=== PATIENT | female | born 1970 | race Caucasian/White ===

== ENCOUNTER 2018-11-17 18:37 | Inpatient (IN) | payer OTHER ==
[2018-11-17 20:43] LABS: ADD MAN DIFF? NO
[2018-11-17] MEDS ORDERED: ONDANSETRON 4 MG INJ (20:45)
[2018-11-17] MEDS ORDERED: morphine 4 MG/ML VIAL (20:45)
[2018-11-17] MEDS: ONDANSETRON 4 MG INJ IV (20:48)
[2018-11-17] MEDS: KETOROLAC 15 MG INJ IV (20:48)
[2018-11-17] MEDS: SOD CHLORIDE 0.9% 500 ML IV (20:48)
[2018-11-17] MEDS: morphine 4 MG/ML VIAL IV (20:49)
[2018-11-17 21:11] LABS: ADD UMIC YES; UR ASCORBIC ACID NEGATIVE (NEGATIVE); UR BACTERIA MODERATE /HPF (NONE SEEN); UR BILIRUBIN (Dip) NEGATIVE (NEGATIVE); UR BLOOD (Dip) 3+ mg/dL (NEGATIVE); UR CLARITY CLOUDY (CLEAR); UR COLOR YELLOW (YELLOW); UR GLUCOSE (Dip) NEGATIVE (NEGATIVE); UR KETONES (Dip) NEGATIVE (NEGATIVE); UR LEUKOCYTE ESTERASE (Dip) 3+ Leu/ul (NEGATIVE); UR MUCUS FEW /HPF (NONE SEEN); UR NITRITE (Dip) POSITIVE (NEGATIVE); UR RBC 69 /HPF (0-5); UR SPECIFIC GRAVITY (Dip) 1.017 (1.003-1.030); UR SQUAMOUS EPITHELIAL CELL FEW /HPF (FEW); UR TOTAL PROTEIN (Dip) 3+ mg/dl (NEGATIVE); UR TRANSITIONAL EPI CELL FEW /HPF (NONE SEEN); UR UROBILINOGEN (Dip) NEGATIVE (NEGATIVE); UR WBC > 182 /HPF (0-5)
[2018-11-17 21:12] LABS: WHITE BLOOD COUNT 17.7 10^3/ul (4.8-10.8)
[2018-11-17 21:12] LABS: BASOPHIL # 0.1 10^3/ul (0.0-0.1); BASOPHILS % 0.3 % (0.0-2.0); EOSINOPHILS % 0.1 % (0.0-7.0); HEMATOCRIT 41.9 % (37.0-47.0); HEMOGLOBIN 13.9 g/dl (12.0-16.0); LYMPHOCYTES # 1.5 10^3/ul (0.8-2.9); LYMPHOCYTES % 8.7 % (15.0-51.0); MEAN CORPUSCULAR HEMOGLOBIN 30.3 pg (29.0-33.0); MEAN CORPUSCULAR HGB CONC 33.2 g/dl (32.0-37.0); MEAN CORPUSCULAR VOLUME 91.5 fl (82.0-101.0); MEAN PLATELET VOLUME 10.6 fl (7.4-10.4); MONOCYTE # 1.1 10^3/ul (0.3-0.9); MONOCYTES % 6.4 % (0.0-11.0); NEUTROPHIL # 14.8 10^3/ul (1.6-7.5); NEUTROPHILS % 83.8 % (39.0-77.0); PLATELET COUNT 237 10^3/UL (140-415); RED BLOOD COUNT 4.58 10^6/ul (4.20-5.40); RED CELL DISTRIBUTION WIDTH 12.5 % (11.5-14.5)
[2018-11-17 21:31] LABS: ALANINE AMINOTRANSFERASE 75 IU/L (13-69); ALBUMIN 3.7 g/dl (3.3-4.9); ALBUMIN/GLOBULIN RATIO 1.27; ALKALINE PHOSPHATASE 87 IU/L (42-121); ANION GAP 10 (5-13); ASPARTATE AMINO TRANSFERASE 44 IU/L (15-46); BILIRUBIN,INDIRECT 0.7 mg/dl (0-1.1); BILIRUBIN,TOTAL 0.7 mg/dl (0.2-1.3); BLOOD UREA NITROGEN 7 mg/dl (7-20); CALCIUM 8.8 mg/dl (8.4-10.2); CARBON DIOXIDE 20 mmol/L (21-31); CHLORIDE 105 mmol/L (97-110); Estimated GFR > 60 mL/min (>60); GLUCOSE 113 mg/dl (70-220); POTASSIUM 3.3 mmol/L (3.5-5.1); SODIUM 135 mmol/L (135-144); TOTAL PROTEIN 6.6 g/dl (6.1-8.1)
[2018-11-17] MEDS: CEFTRIAXONE 1 GM/50 ML (PMX) 50 ML IVPB (23:54)
[2018-11-17] MEDS: SODIUM CHLORIDE 0.9% 1L BAG IV* (23:55)
[2018-11-17] MEDS: HYDROmorphONE 0.5 MG/0.5 ML SYG IV (23:55)
[2018-11-18] MEDS: TAMSULOSIN (SR) 0.4 MG CAP PO ×2 (00:23→06:11)
[2018-11-18] MEDS ORDERED: ACETAMINOPHEN 325 MG TAB PO (00:30)
[2018-11-18] MEDS ORDERED: SENNA TAB PO (02:30)
[2018-11-18] MEDS ORDERED: NACL 0.9% 3 ML SYG IV (02:30)
[2018-11-18] MEDS: SOD CHLORIDE 0.9% 1,000 ML IV ×3 (03:05→14:48)
[2018-11-18] MEDS: ONDANSETRON 4 MG INJ IV ×3 (03:05→22:03)
[2018-11-18] MEDS: MAGNESIUM HYDROXIDE 30ML CUP PO (03:12)
[2018-11-18] MEDS: HYDROCODONE/APAP (5/325) TAB PO ×4 (03:13→22:03)
[2018-11-18] MEDS: BISACODYL (EC) 5 MG TAB PO (03:13)
[2018-11-18] MEDS ORDERED: AL HYDROX/MG HYDROX/SIMETH 30 ML CUP PO (04:30)
[2018-11-18 05:15] LABS: ADD MAN DIFF? NO
[2018-11-18 05:23] LABS: BASOPHIL # 0.1 10^3/ul (0.0-0.1); BASOPHILS % 0.4 % (0.0-2.0); EOSINOPHILS % 0.1 % (0.0-7.0); HEMATOCRIT 41.3 % (37.0-47.0); HEMOGLOBIN 13.4 g/dl (12.0-16.0); LYMPHOCYTES # 1.2 10^3/ul (0.8-2.9); LYMPHOCYTES % 7.2 % (15.0-51.0); MEAN CORPUSCULAR HGB CONC 32.4 g/dl (32.0-37.0); MEAN CORPUSCULAR VOLUME 92.6 fl (82.0-101.0); MEAN PLATELET VOLUME 11.1 fl (7.4-10.4); MONOCYTE # 0.9 10^3/ul (0.3-0.9); MONOCYTES % 5.9 % (0.0-11.0); NEUTROPHIL # 13.7 10^3/ul (1.6-7.5); NEUTROPHILS % 85.5 % (39.0-77.0); PLATELET COUNT 189 10^3/UL (140-415); RED BLOOD COUNT 4.46 10^6/ul (4.20-5.40); RED CELL DISTRIBUTION WIDTH 12.6 % (11.5-14.5)
[2018-11-18 05:39] LABS: ALANINE AMINOTRANSFERASE 67 IU/L (13-69); ALBUMIN 3.3 g/dl (3.3-4.9); ALBUMIN/GLOBULIN RATIO 1.37; ALKALINE PHOSPHATASE 88 IU/L (42-121); ANION GAP 8 (5-13); ASPARTATE AMINO TRANSFERASE 30 IU/L (15-46); BILIRUBIN,INDIRECT 0.8 mg/dl (0-1.1); BILIRUBIN,TOTAL 0.8 mg/dl (0.2-1.3); BLOOD UREA NITROGEN 5 mg/dl (7-20); CALCIUM 8.6 mg/dl (8.4-10.2); CARBON DIOXIDE 21 mmol/L (21-31); CHLORIDE 108 mmol/L (97-110); CREATININE 0.49 mg/dl (0.44-1.00); Estimated GFR > 60 mL/min (>60); GLUCOSE 124 mg/dl (70-220); POTASSIUM 3.2 mmol/L (3.5-5.1); SODIUM 137 mmol/L (135-144); TOTAL PROTEIN 5.7 g/dl (6.1-8.1)
[2018-11-18] MEDS: PIPER-TAZO 3.375 GM IV (PMX) 100 ML IVPB ×3 (06:11→17:52)
[2018-11-18] MEDS: FAMOTIDINE 20 MG TAB PO ×3 (06:11→21:51)
[2018-11-18] MEDS: PHENAZOPYRIDINE 200 MG TAB PO ×3 (08:54→21:42)
[2018-11-18] MEDS: HEPARIN 5,000 UNIT/1 ML VIAL SC ×2 (08:57→21:52)
[2018-11-18] MEDS: POTASSIUM CHLORIDE (SR) 20 MEQ TAB PO (17:52)
[2018-11-18] MEDS: DOCUSATE SODIUM 100 MG CAP PO ×2 (17:52→21:42)
[2018-11-18] MEDS: SENNA TAB PO (21:51)
[2018-11-19] MEDS: PIPER-TAZO 3.375 GM IV (PMX) 100 ML IVPB ×4 (00:37→17:24)
[2018-11-19] MEDS: SOD CHLORIDE 0.9% 1,000 ML IV ×2 (03:40→15:04)
[2018-11-19] MEDS: HYDROCODONE/APAP (5/325) TAB PO (04:38)
[2018-11-19 05:16] LABS: ADD MAN DIFF? NO
[2018-11-19 05:21] LABS: BASOPHILS % 0.5 % (0.0-2.0); EOSINOPHILS % 0.1 % (0.0-7.0); LYMPHOCYTES # 0.9 10^3/ul (0.8-2.9); LYMPHOCYTES % 10.4 % (15.0-51.0); MEAN CORPUSCULAR HEMOGLOBIN 30.4 pg (29.0-33.0); MEAN CORPUSCULAR HGB CONC 33.3 g/dl (32.0-37.0); MEAN CORPUSCULAR VOLUME 91.1 fl (82.0-101.0); MEAN PLATELET VOLUME 11.1 fl (7.4-10.4); MONOCYTE # 0.4 10^3/ul (0.3-0.9); MONOCYTES % 5.1 % (0.0-11.0); NEUTROPHIL # 7.3 10^3/ul (1.6-7.5); NEUTROPHILS % 83.4 % (39.0-77.0); PLATELET COUNT 195 10^3/UL (140-415); RED BLOOD COUNT 4.28 10^6/ul (4.20-5.40); RED CELL DISTRIBUTION WIDTH 12.7 % (11.5-14.5)
[2018-11-19 05:21] LABS: WHITE BLOOD COUNT 8.7 10^3/ul (4.8-10.8)
[2018-11-19 05:41] LABS: HEMOGLOBIN A1C 5.3 % (0-5.9)
[2018-11-19 05:44] LABS: ANION GAP 7 (5-13); BLOOD UREA NITROGEN 4 mg/dl (7-20); CALCIUM 8.5 mg/dl (8.4-10.2); CARBON DIOXIDE 23 mmol/L (21-31); CHLORIDE 107 mmol/L (97-110); CREATININE 0.54 mg/dl (0.44-1.00); Estimated GFR > 60 mL/min (>60); GLUCOSE 117 mg/dl (70-220); MAGNESIUM 2.1 mg/dl (1.7-2.5); POTASSIUM 3.1 mmol/L (3.5-5.1); SODIUM 137 mmol/L (135-144)
[2018-11-19] MEDS: ACETAMINOPHEN 325 MG TAB PO ×2 (06:29→12:19)
[2018-11-19] MEDS: FAMOTIDINE 20 MG TAB PO ×2 (08:22→20:46)
[2018-11-19] MEDS: SENNA TAB PO ×2 (08:22→20:52)
[2018-11-19] MEDS: DOCUSATE SODIUM 100 MG CAP PO ×2 (08:22→20:52)
[2018-11-19] MEDS: PHENAZOPYRIDINE 200 MG TAB PO ×3 (08:22→20:46)
[2018-11-19] MEDS: HEPARIN 5,000 UNIT/1 ML VIAL SC ×2 (08:25→20:51)
[2018-11-19] MEDS: ONDANSETRON 4 MG INJ IV ×2 (08:26→14:16)
[2018-11-19] MEDS: traMADol 50 MG TAB PO ×2 (10:43→19:02)
[2018-11-19] MEDS: POTASSIUM CHLORIDE (SR) 20 MEQ TAB PO (13:03)
[2018-11-19] MEDS: KETOROLAC 15 MG INJ IV (15:03)
[2018-11-19] MEDS: POTASSIUM PHOSPHATE 20 MEQ in SOD CHLORIDE 0.9% 250 ML IVPB (18:11)
[2018-11-20] MEDS: PIPER-TAZO 3.375 GM IV (PMX) 100 ML IVPB ×2 (00:14→05:57)
[2018-11-20] MEDS: KETOROLAC 15 MG INJ IV ×2 (03:28→18:19)
[2018-11-20] MEDS: SOD CHLORIDE 0.9% 1,000 ML IV ×3 (04:22→21:27)
[2018-11-20 05:55] LABS: ADD MAN DIFF? NO
[2018-11-20 06:07] LABS: WHITE BLOOD COUNT 6.1 10^3/ul (4.8-10.8)
[2018-11-20 06:07] LABS: BASOPHILS % 0.7 % (0.0-2.0); EOSINOPHILS # 0.1 10^3/ul (0.0-0.5); EOSINOPHILS % 1.6 % (0.0-7.0); HEMATOCRIT 41.5 % (37.0-47.0); HEMOGLOBIN 13.7 g/dl (12.0-16.0); LYMPHOCYTES # 1.6 10^3/ul (0.8-2.9); LYMPHOCYTES % 26.6 % (15.0-51.0); MEAN CORPUSCULAR HEMOGLOBIN 30.1 pg (29.0-33.0); MEAN CORPUSCULAR VOLUME 91.2 fl (82.0-101.0); MEAN PLATELET VOLUME 10.9 fl (7.4-10.4); MONOCYTE # 0.5 10^3/ul (0.3-0.9); MONOCYTES % 7.7 % (0.0-11.0); NEUTROPHIL # 3.9 10^3/ul (1.6-7.5); NEUTROPHILS % 63.1 % (39.0-77.0); PLATELET COUNT 232 10^3/UL (140-415); RED BLOOD COUNT 4.55 10^6/ul (4.20-5.40); RED CELL DISTRIBUTION WIDTH 12.7 % (11.5-14.5)
[2018-11-20 06:34] LABS: ANION GAP 9 (5-13); BLOOD UREA NITROGEN 4 mg/dl (7-20); CALCIUM 8.6 mg/dl (8.4-10.2); CARBON DIOXIDE 25 mmol/L (21-31); CHLORIDE 105 mmol/L (97-110); CREATININE 0.54 mg/dl (0.44-1.00); Estimated GFR > 60 mL/min (>60); GLUCOSE 100 mg/dl (70-220); POTASSIUM 3.6 mmol/L (3.5-5.1); SODIUM 139 mmol/L (135-144)
[2018-11-20] MEDS: FAMOTIDINE 20 MG TAB PO ×2 (08:43→20:52)
[2018-11-20] MEDS: PHENAZOPYRIDINE 200 MG TAB PO ×3 (08:43→20:52)
[2018-11-20] MEDS: SENNA TAB PO ×2 (08:43→20:52)
[2018-11-20] MEDS: DOCUSATE SODIUM 100 MG CAP PO ×2 (08:43→20:52)
[2018-11-20] MEDS: HEPARIN 5,000 UNIT/1 ML VIAL SC ×2 (08:45→21:02)
[2018-11-20] MEDS: traMADol 50 MG TAB PO (08:45)
[2018-11-20] MEDS: CIPROFLOXACIN 400MG/D5W 200 ML IVPB (14:03)
[2018-11-20] MEDS: ONDANSETRON 4 MG INJ IV (20:54)
[2018-11-21] MEDS: SOD CHLORIDE 0.9% 1,000 ML IV ×2 (00:22→07:24)
[2018-11-21] MEDS: traMADol 50 MG TAB PO ×2 (01:41→08:46)
[2018-11-21 05:31] LABS: ADD MAN DIFF? NO
[2018-11-21 05:40] LABS: BASOPHIL # 0.1 10^3/ul (0.0-0.1); EOSINOPHILS # 0.2 10^3/ul (0.0-0.5); EOSINOPHILS % 3.2 % (0.0-7.0); HEMATOCRIT 40.6 % (37.0-47.0); HEMOGLOBIN 13.3 g/dl (12.0-16.0); LYMPHOCYTES # 2.6 10^3/ul (0.8-2.9); MEAN CORPUSCULAR HEMOGLOBIN 29.9 pg (29.0-33.0); MEAN CORPUSCULAR HGB CONC 32.8 g/dl (32.0-37.0); MEAN CORPUSCULAR VOLUME 91.2 fl (82.0-101.0); MEAN PLATELET VOLUME 10.5 fl (7.4-10.4); MONOCYTE # 0.8 10^3/ul (0.3-0.9); NEUTROPHIL # 2.6 10^3/ul (1.6-7.5); NEUTROPHILS % 41.5 % (39.0-77.0); PLATELET COUNT 255 10^3/UL (140-415); RED BLOOD COUNT 4.45 10^6/ul (4.20-5.40); RED CELL DISTRIBUTION WIDTH 12.7 % (11.5-14.5)
[2018-11-21 05:40] LABS: WHITE BLOOD COUNT 6.3 10^3/ul (4.8-10.8)
[2018-11-21 06:00] LABS: ANION GAP 7 (5-13); BLOOD UREA NITROGEN 11 mg/dl (7-20); CALCIUM 8.6 mg/dl (8.4-10.2); CARBON DIOXIDE 24 mmol/L (21-31); CHLORIDE 109 mmol/L (97-110); CREATININE 0.55 mg/dl (0.44-1.00); Estimated GFR > 60 mL/min (>60); GLUCOSE 104 mg/dl (70-220); POTASSIUM 3.2 mmol/L (3.5-5.1); SODIUM 140 mmol/L (135-144)
[2018-11-21 06:17] LABS: MAGNESIUM 1.9 mg/dl (1.7-2.5)
[2018-11-21 06:17] LABS: PHOSPHORUS 3.6 mg/dl (2.5-4.9)
[2018-11-21] MEDS: DOCUSATE SODIUM 100 MG CAP PO (08:39)
[2018-11-21] MEDS: FAMOTIDINE 20 MG TAB PO (08:40)
[2018-11-21] MEDS: PHENAZOPYRIDINE 200 MG TAB PO ×2 (08:40→12:27)
[2018-11-21] MEDS: SENNA TAB PO (08:40)
[2018-11-21] MEDS: HEPARIN 5,000 UNIT/1 ML VIAL SC (08:41)
[2018-11-21] MEDS: ACETAMINOPHEN 325 MG TAB PO (09:55)
[2018-11-21] MEDS: POTASSIUM CHLORIDE (SR) 20 MEQ TAB PO (11:33)
== END 2018-11-21 13:18 | disposition home or self-care (01) | DRG 872 ==
LOC: E/R 18:37 → MS1 11-18 00:12
DX: A41.9 Sepsis, unspecified organism (principal); N13.6 Pyonephrosis; E87.6 Hypokalemia; Z87.891 Personal history of nicotine dependence
CPT/HCPCS: 36415; 71045; 74176; 80048; 80053; 81001; 81025; 83036; 83605; 83735; 84100; 85025; 87040; 87086; 96361; 96365; 96375; 99285-25